=== PATIENT | female | born 1985 | race Caucasian/White ===

== ENCOUNTER 2017-06-20 08:51 | Emergency (ER) | payer MEDICAID ==
[~2017-06-20] VITALS: Ht 162.6 cm; Wt 79.5 kg
[2017-06-20 08:52] VITALS: BP 108/56; PULSE 83; RESP 18; TEMP 97.6; O2SAT 100
[2017-06-20] MEDS ORDERED: BENZ100 PO (09:10)
--- NOTE | 2017-06-20 09:13 | PD ---
HPI Chief Complaint: Cold / Flu Symptoms Time Seen by Provider: 09:05 Travel History International Travel<30 days: Yes Contact w/Intl Traveler<30days: Yes Name of Country Traveled to: [facility] Traveled to known affect area: No History of Present Illness HPI 32-year-old female presents for evaluation of cough, congestion, sweats. Symptoms started 2 days ago. Cough is productive with sputum. She denies any sick contacts. She has been using [id number] DayQuil and NyQuil but symptoms persisted which prompted evaluation. She has no other complaints at this time. PFSH Past Medical History ?: Not LMP: 05/27/17 Social History Alcohol Use: No Tobacco Use: No Substance Use: No Allergies-Medications (Allergen,Severity, Reaction): Coded Allergies: amoxicillin (Unverified Allergy, Severe, GI UPSET, 12/20/16) HIVES clavulanic acid (Unverified Allergy, Severe, GI UPSET, 12/20/16) HIVES Reported Meds & Prescriptions Reported Meds & Active Scripts Active Tessalon Perles (Benzonatate) 100 Mg Cap 200 Mg PO TID PRN Review of Systems General / Constitutional: Positive: Other (sweats) Eyes: No: Redness HENT: Positive: Rhinitis, Rhinorrhea, Congestion, No: Sore Throat Cardiovascular: No: Chest Pain or Discomfort Respiratory: Positive: Cough Gastrointestinal: No: Nausea, Vomiting Physical Exam Narrative GENERAL: Well-developed well-nourished female in no acute distress SKIN: Warm and dry. HEAD: Atraumatic. Normocephalic. EYES: Pupils equal and round. No scleral icterus. No injection or drainage. ENT: No nasal bleeding or discharge. Mucous membranes pink and moist. NECK: Trachea midline. No JVD. CARDIOVASCULAR: Regular rate and rhythm. No murmur appreciated. RESPIRATORY: No accessory muscle use. Clear to auscultation. Breath sounds equal bilaterally. Data Data Last Documented VS Vital Signs Date Time Temp Pulse Resp B/P (MAP) Pulse Ox O2 Delivery O2 Flow Rate FiO2 06/20/17 08:52 97.6 83 18 108/56 (73) 100 Room Air Orders Orders Influenzae A/B Antigen (06/20/17 09:05) Ed Discharge Order (06/20/17 09:33) MDM Medical Decision Making Medical Screen Exam Complete: Yes Emergency Medical Condition: Yes Medical Record Reviewed: Yes Differential Diagnosis Rhinitis, bronchitis, pneumonia, influenza, otitis media Narrative Course 32-year-old female with 2 days of cough and congestion. She did she appears to have a viral upper respiratory infection. An influenza antigen test was performed and is negative. Supportive care is recommended. The patient is stable for discharge. Diagnosis Primary Impression: Upper respiratory infection Additional Instructions: Stay well-hydrated and well-nourished, get plenty of rest. Wash hands frequently. Cover mouth when coughing. Tessalon for cough. Can continue to use [id number] cough and cold medications. Return for any emergent medical conditions. Med/Other Pt SpecificInfo: Prescription(s) given Scripts Benzonatate (Tessalon Perles) 100 Mg Cap 200 MG PO TID Y for COUGH, #30 CAP 0 Refills Prov: Aranza Park MD 06/20/17 Disposition: 01 DISCHARGE HOME Condition: Stable Gus Rahman Jun 20, 2017 09:13
== END 2017-06-20 09:46 | disposition home or self-care (01) ==
LOC: NEPK 08:51
DX: J06.9 Acute upper respiratory infection, unspecified (principal); Z88.1 Allergy status to other antibiotic agents
CPT/HCPCS: 87804; 99283